=== PATIENT | male | born 1960 | race Two or more races ===

== ENCOUNTER 2024-11-13 03:27 | Emergency (ER) | payer MEDICAID, SELFPAY ==
[2024-11-13 03:30] VITALS: PULSE 92; RESP 18; O2SAT 98
[2024-11-13 03:41] VITALS: BP 172/80; PULSE 76; RESP 18; TEMP 36.8; O2SAT 96
[2024-11-13 06:21] VITALS: BP 165/91; PULSE 66; RESP 16; TEMP 36.6; O2SAT 97
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
== END 2024-11-13 06:25 | disposition home or self-care (01) ==
PROVIDERS: Emergency Provider Emergency Medicine
DX: S40.012A Contusion of left shoulder, initial encounter (principal); V89.2XXA Person injured in unspecified motor-vehicle accident, traffic, initial encounter
CPT/HCPCS: 99281